=== PATIENT | male | born 1965 | race Caucasian/White ===

== ENCOUNTER 2018-01-11 14:43 | Observation (INO) | payer MEDICAID ==
[~2018-01-11] VITALS: Ht 177.8 cm; Wt 63.5 kg
[2018-01-11] MEDS ORDERED: LORazepam 1MG TABLET PO ONE (15:00)
[2018-01-11] MEDS ORDERED: HALOPERIDOL 5 MG/ML IM ONE (15:00)
[2018-01-11] MEDS ORDERED: LORazepam 1MG TABLET ONE (15:08)
[2018-01-11] MEDS ORDERED: HALOPERIDOL 5 MG/ML ONE (15:08)
[2018-01-11 15:37] LABS: BASOPHILS # (AUTO) 0.03 x10^3/uL (0-0.1); BASOPHILS % (AUTO) 0 % (0-1); EOSINOPHILS # (AUTO) 0.23 x10^3/uL (0-0.4); EOSINOPHILS % (AUTO) 1 % (1-7); LYMPHOCYTES # (AUTO) 2.41 x10^3/uL (1-3.4); LYMPHOCYTES % (AUTO) 14 % (22-44); MD NO; MEAN CORPUSCULAR HEMOGLOBIN 29.4 pg (27.5-34.5); MEAN CORPUSCULAR HGB CONC 32.9 g/dL (33.2-36.2); MEAN CORPUSCULAR VOLUME 89.4 fL (81-97); MEAN PLATELET VOLUME 7.6 fL (7.4-10.4); MONOCYTES # (AUTO) 1.43 x10^3/uL (0.2-0.8); MONOCYTES % (AUTO) 8 % (2-9); NEUTROPHILS # (AUTO) 13.59 x10^3/uL (1.8-6.8); NEUTROPHILS % (AUTO) 77 % (42-75); PLATELET COUNT 350 x10^3/uL (130-400); RED CELL DISTRIBUTION WIDTH 13.5 % (9.4-14.8)
[2018-01-11 15:47] LABS: ALBUMIN 4.4 g/dL (3.4-5.0); ANION GAP 9 mmol/L (5-15); CALCIUM 9.7 mg/dL (8.5-10.1); CHLORIDE 103 mmol/L (98-107)
[2018-01-11 15:48] LABS: SALICYLATE LEVEL < 1.7 mg/dL (2.8-20.0)
[2018-01-11 15:50] LABS: ALANINE AMINOTRANSFERASE 52 U/L (12-78); ALKALINE PHOSPHATASE 121 U/L (45-117); BILIRUBIN,TOTAL 0.6 mg/dL (0.2-1.0); TOTAL PROTEIN 8.5 g/dL (6.4-8.2)
[2018-01-11 15:52] LABS: ACETAMINOPHEN < 2 mcg/mL (10-30)
[2018-01-11 16:08] LABS: AMPHETAMINE SCREEN, URINE Positive (Negative); BARBITURATE SCREEN, URINE Negative (Negative); BENZODIAZEPINE SCREEN, URINE Negative (Negative); CANNABINOID SCREEN, URINE Negative (Negative); COCAINE SCREEN, URINE Negative (Negative); METHADONE SCREEN, URINE Negative (Negative); OPIATE SCREEN, URINE Negative (Negative)
[2018-01-11] MEDS ORDERED: QUET50TA5 PO (17:58)
[2018-01-11] MEDS ORDERED: GABA100C PO (17:58)
[2018-01-12] MEDS ORDERED: GABAPENTIN 300 MG CAPSULE PO PRN (01:00)
[2018-01-12] MEDS ORDERED: ALUMINUM/MAG/SIMETHICONE 30 ML UDC PO PRN (01:00)
[2018-01-12] MEDS ORDERED: DOCUSATE 100 MG CAPSULE PO PRN (01:00)
[2018-01-12] MEDS ORDERED: DIPHENHYDRAMINE 50 MG CAPSULE PO PRN (01:00)
[2018-01-12] MEDS ORDERED: ACETAMINOPHEN 325 MG TABLET PO PRN (01:00)
[2018-01-12] MEDS ORDERED: LORazepam 1MG TABLET ONE ×3 (01:21→13:58)
[2018-01-12] MEDS: LORazepam 1MG TABLET PO PRN ×3 (01:27→13:59)
[2018-01-12] MEDS: PLEASE ENTER ALLERGIES MC SCH ×3 (02:30→18:30)
[2018-01-12] MEDS: MAGNESIUM CHLORIDE 64 MG TABLET.DR PO SCH ×3 (09:34→20:38)
[2018-01-12] MEDS: MULTIVITAMINS/MINERALS TABLET PO SCH (09:34)
[2018-01-12] MEDS ORDERED: THIAMINE 100MG TABLET ONE (11:15)
[2018-01-12 11:28] LABS: MEAN CORPUSCULAR HEMOGLOBIN 29.4 pg (27.5-34.5); MEAN CORPUSCULAR HGB CONC 33.2 g/dL (33.2-36.2); MEAN CORPUSCULAR VOLUME 88.5 fL (81-97); MEAN PLATELET VOLUME 7.5 fL (7.4-10.4); PLATELET COUNT 323 x10^3/uL (130-400); RED BLOOD COUNT 5.47 x10^6/uL (4.38-5.82)
[2018-01-12] MEDS: THIAMINE 100MG TABLET PO SCH (11:29)
[2018-01-12] MEDS: FOLIC ACID 1 MG TABLET PO SCH (11:29)
[2018-01-12 11:42] LABS: BASOPHILS # (AUTO) 0.03 x10^3/uL (0-0.1); BASOPHILS % (AUTO) 0 % (0-1); EOSINOPHILS # (AUTO) 0.53 x10^3/uL (0-0.4); EOSINOPHILS % (AUTO) 4 % (1-7); LYMPHOCYTES # (AUTO) 1.84 x10^3/uL (1-3.4); LYMPHOCYTES % (AUTO) 15 % (22-44); MD SCAN; MONOCYTES # (AUTO) 0.92 x10^3/uL (0.2-0.8); MONOCYTES % (AUTO) 8 % (2-9); NEUTROPHILS # (AUTO) 8.75 x10^3/uL (1.8-6.8); NEUTROPHILS % (AUTO) 73 % (42-75)
[2018-01-12] MEDS: NICOTINE GUM 2 MG BC PRN (13:54)
[2018-01-12 16:49] VITALS: BP 125/81
[2018-01-12 19:50] VITALS: BP 116/77
[2018-01-13] MEDS: PLEASE ENTER ALLERGIES MC SCH ×2 (02:30→10:30)
[2018-01-13 06:00] LABS: BASOPHILS # (AUTO) 0.03 x10^3/uL (0-0.1); BASOPHILS % (AUTO) 0 % (0-1); EOSINOPHILS # (AUTO) 0.46 x10^3/uL (0-0.4); EOSINOPHILS % (AUTO) 5 % (1-7); LYMPHOCYTES # (AUTO) 1.86 x10^3/uL (1-3.4); LYMPHOCYTES % (AUTO) 21 % (22-44); MD NO; MEAN CORPUSCULAR HEMOGLOBIN 30.3 pg (27.5-34.5); MEAN CORPUSCULAR HGB CONC 34.4 g/dL (33.2-36.2); MEAN CORPUSCULAR VOLUME 88.3 fL (81-97); MEAN PLATELET VOLUME 7.4 fL (7.4-10.4); MONOCYTES # (AUTO) 0.82 x10^3/uL (0.2-0.8); MONOCYTES % (AUTO) 9 % (2-9); NEUTROPHILS # (AUTO) 5.74 x10^3/uL (1.8-6.8); NEUTROPHILS % (AUTO) 65 % (42-75); PLATELET COUNT 292 x10^3/uL (130-400); RED BLOOD COUNT 5.47 x10^6/uL (4.38-5.82); RED CELL DISTRIBUTION WIDTH 13.7 % (9.4-14.8)
[2018-01-13 07:52] VITALS: BP 110/80
[2018-01-13] MEDS: FOLIC ACID 1 MG TABLET PO SCH (08:11)
[2018-01-13] MEDS: MULTIVITAMINS/MINERALS TABLET PO SCH (08:11)
[2018-01-13] MEDS: THIAMINE 100MG TABLET PO SCH (08:11)
[2018-01-13] MEDS: MAGNESIUM CHLORIDE 64 MG TABLET.DR PO SCH ×3 (08:11→21:13)
[2018-01-13] MEDS: LORazepam 1MG TABLET PO PRN ×2 (08:17→13:53)
[2018-01-13] MEDS ORDERED: LITH450T PO (13:44)
[2018-01-13] MEDS: NICOTINE GUM 2 MG BC PRN (13:53)
[2018-01-13] MEDS ORDERED: SEROQUEL MC SCH (15:00)
[2018-01-13] MEDS: GABAPENTIN 300 MG CAPSULE PO SCH ×2 (16:09→21:13)
[2018-01-13 20:00] VITALS: BP 139/74
[2018-01-13] MEDS: LITHIUM CARBONATE 300 MG TABLET.ER PO SCH (21:13)
[2018-01-13] MEDS: QUETIAPINE 200 MG TABLET PO SCH (21:14)
[2018-01-14 07:45] VITALS: BP 126/85
[2018-01-14] MEDS: MAGNESIUM CHLORIDE 64 MG TABLET.DR PO SCH (07:56)
[2018-01-14] MEDS: LITHIUM CARBONATE 300 MG TABLET.ER PO SCH ×2 (07:57→21:04)
[2018-01-14] MEDS: THIAMINE 100MG TABLET PO SCH (07:57)
[2018-01-14] MEDS: GABAPENTIN 300 MG CAPSULE PO SCH ×3 (07:57→21:03)
[2018-01-14] MEDS: FOLIC ACID 1 MG TABLET PO SCH (07:57)
[2018-01-14] MEDS: MULTIVITAMINS/MINERALS TABLET PO SCH (07:57)
[2018-01-14] MEDS: QUETIAPINE 200 MG TABLET PO SCH ×2 (07:58→21:04)
[2018-01-14 10:53] LABS: MICROSCOPIC NOT IND
[2018-01-14 10:54] LABS: CULTURE INDICATED? NO
[2018-01-14] MEDS ORDERED: LOPERAMIDE 2 MG CAPSULE PO PRN (15:30)
[2018-01-14 20:00] VITALS: BP 99/67
[2018-01-15 08:00] VITALS: BP 122/80
[2018-01-15] MEDS: QUETIAPINE 200 MG TABLET PO SCH ×2 (08:26→21:30)
[2018-01-15] MEDS: MULTIVITAMINS/MINERALS TABLET PO SCH (08:26)
[2018-01-15] MEDS: FOLIC ACID 1 MG TABLET PO SCH (08:26)
[2018-01-15] MEDS: LITHIUM CARBONATE 300 MG TABLET.ER PO SCH ×2 (08:27→21:31)
[2018-01-15] MEDS: THIAMINE 100MG TABLET PO SCH (08:27)
[2018-01-15] MEDS: GABAPENTIN 300 MG CAPSULE PO SCH ×3 (08:28→21:30)
[2018-01-15] MEDS ORDERED: ALBUTEROL SULFATE 2.5 MG/3 ML NPPB PRN ×2 (17:30→18:30)
[2018-01-15] MEDS ORDERED: ALBUTEROL SULFATE 2.5 MG/3 ML ONE (17:31)
[2018-01-15] MEDS: LORazepam 1MG TABLET PO PRN (17:57)
[2018-01-15 19:59] VITALS: BP 121/67
[2018-01-16 07:35] VITALS: BP 117/80
[2018-01-16] MEDS: LITHIUM CARBONATE 300 MG TABLET.ER PO SCH ×2 (08:05→20:13)
[2018-01-16] MEDS: MULTIVITAMINS/MINERALS TABLET PO SCH (08:06)
[2018-01-16] MEDS: GABAPENTIN 300 MG CAPSULE PO SCH ×3 (08:06→20:12)
[2018-01-16] MEDS: FOLIC ACID 1 MG TABLET PO SCH (08:06)
[2018-01-16] MEDS: THIAMINE 100MG TABLET PO SCH (08:06)
[2018-01-16] MEDS: QUETIAPINE 200 MG TABLET PO SCH ×2 (08:07→20:10)
[2018-01-16] MEDS: LORazepam 1MG TABLET PO PRN ×2 (17:52→21:06)
[2018-01-16 20:08] VITALS: BP 124/79
[2018-01-17] MEDS: MULTIVITAMINS/MINERALS TABLET PO SCH (07:42)
[2018-01-17] MEDS: GABAPENTIN 300 MG CAPSULE PO SCH ×3 (07:42→20:09)
[2018-01-17] MEDS: THIAMINE 100MG TABLET PO SCH (07:42)
[2018-01-17] MEDS: FOLIC ACID 1 MG TABLET PO SCH (07:42)
[2018-01-17] MEDS: QUETIAPINE 200 MG TABLET PO SCH ×2 (07:43→20:11)
[2018-01-17] MEDS: LITHIUM CARBONATE 300 MG TABLET.ER PO SCH ×2 (07:44→20:09)
[2018-01-17 08:02] VITALS: BP 97/69
[2018-01-17 19:02] VITALS: BP 119/75
[2018-01-17] MEDS: LORazepam 1MG TABLET PO PRN (19:09)
[2018-01-18] MEDS: LORazepam 1MG TABLET PO PRN (00:46)
[2018-01-18 07:17] VITALS: BP 111/69
[2018-01-18] MEDS: FOLIC ACID 1 MG TABLET PO SCH (08:18)
[2018-01-18] MEDS: LITHIUM CARBONATE 300 MG TABLET.ER PO SCH ×2 (08:19→20:51)
[2018-01-18] MEDS: MULTIVITAMINS/MINERALS TABLET PO SCH (08:19)
[2018-01-18] MEDS: THIAMINE 100MG TABLET PO SCH (08:20)
[2018-01-18] MEDS: GABAPENTIN 300 MG CAPSULE PO SCH ×3 (08:20→20:51)
[2018-01-18] MEDS: QUETIAPINE 200 MG TABLET PO SCH ×2 (08:23→20:50)
[2018-01-18 19:10] VITALS: BP 120/82
[2018-01-19] MEDS: GABAPENTIN 300 MG CAPSULE PO SCH ×3 (07:48→20:19)
[2018-01-19] MEDS: MULTIVITAMINS/MINERALS TABLET PO SCH (07:48)
[2018-01-19] MEDS: THIAMINE 100MG TABLET PO SCH (07:49)
[2018-01-19] MEDS: LITHIUM CARBONATE 300 MG TABLET.ER PO SCH ×2 (07:49→20:19)
[2018-01-19] MEDS: FOLIC ACID 1 MG TABLET PO SCH (07:49)
[2018-01-19 07:50] VITALS: BP 107/77
[2018-01-19] MEDS: QUETIAPINE 200 MG TABLET PO SCH ×2 (07:50→20:19)
[2018-01-19 19:30] VITALS: BP 116/53
[2018-01-20 07:49] VITALS: BP 107/74
[2018-01-20] MEDS: FOLIC ACID 1 MG TABLET PO SCH (09:11)
[2018-01-20] MEDS: MULTIVITAMINS/MINERALS TABLET PO SCH (09:12)
[2018-01-20] MEDS: LITHIUM CARBONATE 300 MG TABLET.ER PO SCH ×2 (09:12→20:42)
[2018-01-20] MEDS: GABAPENTIN 300 MG CAPSULE PO SCH ×3 (09:13→20:44)
[2018-01-20] MEDS: QUETIAPINE 200 MG TABLET PO SCH ×2 (09:13→20:42)
[2018-01-20] MEDS: THIAMINE 100MG TABLET PO SCH (09:14)
[2018-01-20 15:51] VITALS: BP 125/82
[2018-01-20] MEDS: LORazepam 1MG TABLET PO PRN (16:11)
[2018-01-20 19:57] VITALS: BP 125/87
[2018-01-21] MEDS: LORazepam 1MG TABLET PO PRN ×2 (06:21→15:33)
[2018-01-21 08:07] VITALS: BP 124/92
[2018-01-21] MEDS: MULTIVITAMINS/MINERALS TABLET PO SCH (09:35)
[2018-01-21] MEDS: FOLIC ACID 1 MG TABLET PO SCH (09:35)
[2018-01-21] MEDS: LITHIUM CARBONATE 300 MG TABLET.ER PO SCH ×2 (09:35→20:08)
[2018-01-21] MEDS: THIAMINE 100MG TABLET PO SCH (09:35)
[2018-01-21] MEDS: QUETIAPINE 200 MG TABLET PO SCH ×2 (09:36→20:09)
[2018-01-21] MEDS: GABAPENTIN 300 MG CAPSULE PO SCH ×3 (09:36→20:09)
[2018-01-21 19:25] VITALS: BP 118/76
[2018-01-22 08:00] VITALS: BP 114/79
[2018-01-22] MEDS: QUETIAPINE 200 MG TABLET PO SCH ×2 (09:00→20:41)
[2018-01-22] MEDS: THIAMINE 100MG TABLET PO SCH (09:00)
[2018-01-22] MEDS: FOLIC ACID 1 MG TABLET PO SCH (09:00)
[2018-01-22] MEDS: LITHIUM CARBONATE 300 MG TABLET.ER PO SCH ×2 (09:00→20:41)
[2018-01-22] MEDS: GABAPENTIN 300 MG CAPSULE PO SCH ×3 (09:00→20:41)
[2018-01-22] MEDS: MULTIVITAMINS/MINERALS TABLET PO SCH (09:00)
[2018-01-22] MEDS: LORazepam 1MG TABLET PO PRN (16:22)
[2018-01-22 20:35] VITALS: BP 117/74
[2018-01-23] MEDS: MULTIVITAMINS/MINERALS TABLET PO SCH (08:02)
[2018-01-23] MEDS: FOLIC ACID 1 MG TABLET PO SCH (08:03)
[2018-01-23] MEDS: QUETIAPINE 200 MG TABLET PO SCH ×2 (08:03→20:55)
[2018-01-23] MEDS: GABAPENTIN 300 MG CAPSULE PO SCH ×3 (08:03→20:53)
[2018-01-23] MEDS: THIAMINE 100MG TABLET PO SCH (08:03)
[2018-01-23] MEDS: LITHIUM CARBONATE 300 MG TABLET.ER PO SCH ×2 (08:04→20:52)
[2018-01-23 08:23] VITALS: BP 120/87
[2018-01-23 20:14] VITALS: BP 128/83
[2018-01-24 08:15] VITALS: BP 114/87
[2018-01-24] MEDS: QUETIAPINE 200 MG TABLET PO SCH (08:42)
[2018-01-24] MEDS: LITHIUM CARBONATE 300 MG TABLET.ER PO SCH (08:43)
[2018-01-24] MEDS: GABAPENTIN 300 MG CAPSULE PO SCH (08:43)
[2018-01-24] MEDS: THIAMINE 100MG TABLET PO SCH (08:44)
[2018-01-24] MEDS: MULTIVITAMINS/MINERALS TABLET PO SCH (08:44)
[2018-01-24] MEDS: FOLIC ACID 1 MG TABLET PO SCH (08:44)
== END 2018-01-24 13:03 ==
LOC: ED 17:13 → EDIP 18:48 → 2N 01-12 16:14
PROVIDERS: ADMIT Internal Medicine; ATTEND Internal Medicine
DX: R45.851 Suicidal ideations (principal); R45.850 Homicidal ideations; D72.829 Elevated white blood cell count, unspecified; F10.239 Alcohol dependence with withdrawal, unspecified; I10 Essential (primary) hypertension; F15.10 Other stimulant abuse, uncomplicated; F17.210 Nicotine dependence, cigarettes, uncomplicated; F20.0 Paranoid schizophrenia; F31.9 Bipolar disorder, unspecified; J45.909 Unspecified asthma, uncomplicated; Z59.0 Homelessness; Z82.5 Family history of asthma and other chronic lower respiratory diseases
CPT/HCPCS: 36415; 71045; 80053; 80178; 80307; 80329; 81003; 85025; 94640; 96372; 99284; G0378; J1630; J7613; G0480

== ENCOUNTER 2018-04-05 15:25 | Inpatient (IN) | payer MEDICAID ==
[~2018-04-05] VITALS: Ht 177.8 cm; Wt 79.8 kg
[~2018-04-05 15:25] MED LIST: GABA100C PO; LITH450T PO; QUET50TA5 PO
[2018-04-05] MEDS ORDERED: LORazepam 2 MG/ML, 1ML IVPush ONE (16:00)
[2018-04-05] MEDS ORDERED: SODIUM CHLORIDE FLUSH 10ML SYR IVF ONE ×2 (16:00→17:30)
[2018-04-05 16:11] LABS: BASOPHILS # (AUTO) 0.03 x10^3/uL (0-0.1); BASOPHILS % (AUTO) 0 % (0-1); EOSINOPHILS # (AUTO) 0.32 x10^3/uL (0-0.4); EOSINOPHILS % (AUTO) 4 % (1-7); LYMPHOCYTES # (AUTO) 1.58 x10^3/uL (1-3.4); LYMPHOCYTES % (AUTO) 22 % (22-44); MD NO; MEAN CORPUSCULAR HEMOGLOBIN 28.7 pg (27.5-34.5); MEAN CORPUSCULAR HGB CONC 33.5 g/dL (33.2-36.2); MEAN CORPUSCULAR VOLUME 85.5 fL (81-97); MEAN PLATELET VOLUME 7.8 fL (7.4-10.4); MONOCYTES # (AUTO) 0.47 x10^3/uL (0.2-0.8); MONOCYTES % (AUTO) 7 % (2-9); NEUTROPHILS # (AUTO) 4.89 x10^3/uL (1.8-6.8); NEUTROPHILS % (AUTO) 67 % (42-75); PLATELET COUNT 301 x10^3/uL (130-400); RED BLOOD COUNT 5.76 x10^6/uL (4.38-5.82); RED CELL DISTRIBUTION WIDTH 15.7 % (9.4-14.8)
[2018-04-05 16:20] LABS: ALBUMIN 3.8 g/dL (3.4-5.0); ANION GAP 6 mmol/L (5-15); CHLORIDE 105 mmol/L (98-107); SALICYLATE LEVEL 3.1 mg/dL (2.8-20.0)
[2018-04-05 16:23] LABS: ALANINE AMINOTRANSFERASE 29 U/L (12-78); ALKALINE PHOSPHATASE 108 U/L (45-117); BILIRUBIN,TOTAL 0.7 mg/dL (0.2-1.0); CREATININE 0.83 mg/dL (0.7-1.3); TOTAL PROTEIN 7.5 g/dL (6.4-8.2)
[2018-04-05] MEDS ORDERED: LORazepam 2 MG/ML, 1ML ONE (16:23)
[2018-04-05 16:25] LABS: ACETAMINOPHEN < 2 mcg/mL (10-30)
--- NOTE | 2018-04-05 16:37 | NUR ---
Placed PIV per EDMD orders and provided medication per EMAR.
[2018-04-05 16:38] LABS: AMPHETAMINE SCREEN, URINE Negative (Negative); BARBITURATE SCREEN, URINE Negative (Negative); BENZODIAZEPINE SCREEN, URINE Positive (Negative); CANNABINOID SCREEN, URINE Positive (Negative); COCAINE SCREEN, URINE Negative (Negative); METHADONE SCREEN, URINE Negative (Negative); OPIATE SCREEN, URINE Negative (Negative)
--- NOTE | 2018-04-05 17:17 | NUR ---
Pt resting on [employer] watching TV. NADN. No needs expressed at this time. Sitter near doorway in direct line of sight for observation. NADN.
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
--- NOTE | 2018-04-05 17:32 | NUR ---
Pt's Gabapentin, mirtazapine, and ventolin inhaler at Pharmacy for safe keeping. Yellow belongings slip in pt's chart.
--- NOTE | 2018-04-05 17:32 | NUR ---
Pt has personal glasses at bedside.
[2018-04-05] MEDS ORDERED: hydrALAzine 20 MG/ML, 1ML IVPush PRN (18:00)
[2018-04-05] MEDS: GABAPENTIN 300 MG CAPSULE PO SCH ×2 (18:00→21:49)
[2018-04-05] MEDS ORDERED: NICOTINE 21 MG/24 HR PATCH.TD24 TD SCH (18:00)
[2018-04-05] MEDS ORDERED: ONDANSETRON 2MG/ML, 2ML IVPush PRN (18:00)
[2018-04-05] MEDS ORDERED: POTASSIUM CHLORIDE 20 MEQ, MAGNESIUM SULFATE 1 GM, FOLIC ACID 1 MG, THIAMINE 200 MG, MV... IV SCH (18:00)
[2018-04-05] MEDS ORDERED: MIRT15TA4 PO (18:30)
[2018-04-05] MEDS ORDERED: DIAZ5TAB4 PO (18:30)
[2018-04-05] MEDS ORDERED: ALBU18HF INH (18:30)
[2018-04-05] MEDS ORDERED: OLAN20TA7 PO (18:30)
[2018-04-05] MEDS ORDERED: POTASSIUM CHLORIDE 20 MEQ, MAGNESIUM SULFATE 1 GM, FOLIC ACID 1 MG, MVI ADULT 10 ML in ... IV SCH (20:14)
[2018-04-05] MEDS ORDERED: SEROQUEL MC SCH (20:30)
[2018-04-05] MEDS ORDERED: QUETIAPINE FUMARATE 500 MG PO SCH (21:00)
[2018-04-05] MEDS ORDERED: MIRTAZAPINE 15 MG TABLET PO SCH (21:00)
[2018-04-05] MEDS: PANTOPROZOLE 40MG TABLET PO SCH (21:49)
[2018-04-05] MEDS: QUETIAPINE 200 MG TABLET PO SCH (22:00)
[2018-04-05] MEDS ORDERED: LORazepam 2 MG/ML, 1ML IVPush PRN (23:00)
[2018-04-05] MEDS: CHLORDIAZEPOXIDE 25 MG CAPSULE PO PRN (23:23)
[2018-04-05 23:43] VITALS: BP 93/60
[2018-04-06 02:00] VITALS: BP 95/63
[2018-04-06] MEDS: SODIUM CHLORIDE 0.9% 1,000 ML IV SCH ×2 (06:28→16:58)
[2018-04-06] MEDS ORDERED: LORazepam 2 MG/ML, 1ML IVPush PRN (07:00)
[2018-04-06 07:16] LABS: ALANINE AMINOTRANSFERASE 25 U/L (12-78); ALBUMIN 3.3 g/dL (3.4-5.0); ANION GAP 6 mmol/L (5-15); CALCIUM 8.4 mg/dL (8.5-10.1); CHLORIDE 106 mmol/L (98-107)
[2018-04-06 07:18] LABS: ALKALINE PHOSPHATASE 84 U/L (45-117); BILIRUBIN,TOTAL 0.4 mg/dL (0.2-1.0); TOTAL PROTEIN 6.7 g/dL (6.4-8.2)
[2018-04-06] MEDS ORDERED: THIAMINE 100MG TABLET PO SCH (09:00)
[2018-04-06] MEDS: PANTOPROZOLE 40MG TABLET PO SCH ×2 (09:06→16:58)
[2018-04-06] MEDS: GABAPENTIN 300 MG CAPSULE PO SCH ×2 (09:06→16:58)
[2018-04-06] MEDS: QUETIAPINE 200 MG TABLET PO SCH (09:06)
[2018-04-06] MEDS: CHLORDIAZEPOXIDE 25 MG CAPSULE PO PRN (09:07)
[2018-04-06 10:50] VITALS: BP 129/60
[2018-04-06 14:12] VITALS: BP 129/84
[2018-04-06] MEDS ORDERED: PROPRANOLOL 10 MG TABLET PO SCH (15:00)
[2018-04-06] MEDS ORDERED: PANT40TA5 PO (16:23)
[2018-04-06] MEDS ORDERED: FOLI-17 PO (16:23)
[2018-04-06] MEDS ORDERED: CHLO25CA9 PO (16:23)
[2018-04-06] MEDS ORDERED: NICO-487 TD (16:23)
[2018-04-06] MEDS ORDERED: THIA100T67 PO (16:23)
[2018-04-06] MEDS ORDERED: QUET200T PO (16:23)
[2018-04-06] MEDS ORDERED: PROP10TA16 PO (16:23)
[2018-04-07 02:00] VITALS: BP 103/65
== END 2018-04-06 17:31 | DRG 881 ==
LOC: ED 17:07 → EDIP 17:08 → 3NE 20:00
PROVIDERS: ADMIT Hospitalist; ATTEND Internal Medicine
DX: F32.9 Major depressive disorder, single episode, unspecified (principal); F10.231 Alcohol dependence with withdrawal delirium; F25.9 Schizoaffective disorder, unspecified; I10 Essential (primary) hypertension; J45.909 Unspecified asthma, uncomplicated; Z87.891 Personal history of nicotine dependence; Z91.14 Patient's other noncompliance with medication regimen
CPT/HCPCS: 36415; 80053; 80307; 80329; 83735; 84100; 85025; 96374; 99285; G0378; J3475; J3480; J7070; G0480; J2060; J7030

== ENCOUNTER 2018-04-06 18:12 | Inpatient (IN) | payer MEDICAID ==
[~2018-04-06] VITALS: Ht 180.3 cm; Wt 97.2 kg
[~2018-04-06 18:12] MED LIST changes: +ALBU18HF INH; +CHLO25CA9 PO; +DIAZ5TAB4 PO; +FOLI-17 PO; +MIRT15TA4 PO; +NICO-487 TD; +OLAN20TA7 PO; +PANT40TA5 PO; +PROP10TA16 PO; +QUET200T PO; +THIA100T67 PO
[2018-04-06] MEDS ORDERED: POLYETHYLENE GLYCOL 17 GM PACKET PO PRN (18:30)
[2018-04-06] MEDS ORDERED: BISACODYL 10 MG SUPP PR PRN (18:30)
[2018-04-06] MEDS ORDERED: DOCUSATE 100 MG CAPSULE PO PRN (18:30)
[2018-04-06 18:47] VITALS: BP 120/77
[2018-04-06 18:50] VITALS: BP 120/77
[2018-04-06] MEDS ORDERED: PLEASE ENTER HEIGHT AND WEIGHT MC SCH (19:00)
[2018-04-06 19:55] VITALS: BP 80/53
[2018-04-06 20:30] VITALS: BP 117/77
[2018-04-06] MEDS: ACAMPROSATE 333 MG TABLET.DR PO SCH (20:47)
[2018-04-06] MEDS: MIRTAZAPINE 15 MG TABLET PO SCH (20:47)
[2018-04-06] MEDS: NICOTINE 21 MG/24 HR PATCH.TD24 TD SCH (20:47)
[2018-04-06] MEDS: QUETIAPINE 200 MG TABLET PO SCH (20:47)
[2018-04-06] MEDS: GABAPENTIN 300 MG CAPSULE PO SCH (20:48)
[2018-04-07 06:35] LABS: CHOL/HDL RATIO 2.9; FOLATE LEVEL 11.5 ng/mL (3.1-17.5); FREE T4 (FREE THYROXINE) 0.96 ng/dL (0.76-1.46); LDL/HDL RATIO 1.3 (0.5-3.0); THYROID STIMULATING HORMONE 0.837 mIU/L (0.358-3.740)
[2018-04-07 07:15] VITALS: BP 127/83
[2018-04-07] MEDS: LORazepam 1MG TABLET PO PRN ×2 (07:41→15:15)
[2018-04-07] MEDS: THIAMINE 100MG TABLET PO SCH (08:46)
[2018-04-07] MEDS: GABAPENTIN 300 MG CAPSULE PO SCH ×3 (08:46→20:13)
[2018-04-07] MEDS: QUETIAPINE 200 MG TABLET PO SCH ×2 (08:46→20:13)
[2018-04-07] MEDS: ACAMPROSATE 333 MG TABLET.DR PO SCH ×3 (08:46→20:13)
[2018-04-07] MEDS: FOLIC ACID 1 MG TABLET PO SCH (08:46)
[2018-04-07 13:37] LABS: MICROSCOPIC NOT IND
[2018-04-07 13:39] LABS: CULTURE INDICATED? NO
[2018-04-07 15:14] VITALS: BP 120/81
[2018-04-07] MEDS: ACETAMINOPHEN 325 MG TABLET PO PRN (17:58)
[2018-04-07] MEDS: NICOTINE 21 MG/24 HR PATCH.TD24 TD SCH (17:58)
[2018-04-07 20:00] VITALS: BP 115/80
[2018-04-07] MEDS: QUETIAPINE 100MG TABLET PO SCH (20:13)
[2018-04-07] MEDS: MIRTAZAPINE 15 MG TABLET PO SCH (20:13)
[2018-04-08] MEDS: LORazepam 1MG TABLET PO PRN ×2 (05:44→20:12)
[2018-04-08 05:50] VITALS: BP 128/90
[2018-04-08 07:19] VITALS: BP 126/83
[2018-04-08] MEDS: FOLIC ACID 1 MG TABLET PO SCH (08:28)
[2018-04-08] MEDS: THIAMINE 100MG TABLET PO SCH (08:28)
[2018-04-08] MEDS: GABAPENTIN 300 MG CAPSULE PO SCH ×3 (08:29→20:12)
[2018-04-08] MEDS: QUETIAPINE 200 MG TABLET PO SCH ×2 (08:29→20:12)
[2018-04-08] MEDS: ACAMPROSATE 333 MG TABLET.DR PO SCH ×3 (08:29→20:11)
[2018-04-08] MEDS: NICOTINE 21 MG/24 HR PATCH.TD24 TD SCH (18:33)
[2018-04-08 19:52] VITALS: BP 117/65
[2018-04-08] MEDS: QUETIAPINE 100MG TABLET PO SCH (20:11)
[2018-04-08] MEDS: MIRTAZAPINE 15 MG TABLET PO SCH (20:12)
[2018-04-09 07:22] VITALS: BP 114/84
[2018-04-09] MEDS: LORazepam 1MG TABLET PO PRN ×2 (07:32→20:41)
[2018-04-09] MEDS: GABAPENTIN 300 MG CAPSULE PO SCH ×3 (08:57→20:42)
[2018-04-09] MEDS: ACAMPROSATE 333 MG TABLET.DR PO SCH ×3 (08:57→20:41)
[2018-04-09] MEDS: THIAMINE 100MG TABLET PO SCH (08:57)
[2018-04-09] MEDS: FOLIC ACID 1 MG TABLET PO SCH (08:57)
[2018-04-09] MEDS: QUETIAPINE 200 MG TABLET PO SCH ×2 (08:57→20:41)
[2018-04-09] MEDS: NICOTINE 21 MG/24 HR PATCH.TD24 TD SCH (18:00)
[2018-04-09 19:51] VITALS: BP 121/80
[2018-04-09] MEDS: MIRTAZAPINE 15 MG TABLET PO SCH (20:41)
[2018-04-09] MEDS: QUETIAPINE 100MG TABLET PO SCH (20:41)
[2018-04-10 07:55] VITALS: BP 111/77
[2018-04-10] MEDS: FOLIC ACID 1 MG TABLET PO SCH (08:00)
[2018-04-10] MEDS: GABAPENTIN 300 MG CAPSULE PO SCH ×3 (08:00→21:02)
[2018-04-10] MEDS: LORazepam 1MG TABLET PO PRN ×2 (08:00→15:52)
[2018-04-10] MEDS: ACAMPROSATE 333 MG TABLET.DR PO SCH ×3 (08:00→21:03)
[2018-04-10] MEDS: THIAMINE 100MG TABLET PO SCH (08:00)
[2018-04-10] MEDS: QUETIAPINE 200 MG TABLET PO SCH ×2 (08:00→21:02)
[2018-04-10] MEDS ORDERED: QUETIAPINE 25MG TABLET PO SCH (12:30)
[2018-04-10 19:33] VITALS: BP 127/85
[2018-04-10] MEDS: QUETIAPINE 100MG TABLET PO SCH (21:03)
[2018-04-10] MEDS: MIRTAZAPINE 15 MG TABLET PO SCH (21:03)
[2018-04-10] MEDS: NICOTINE 21 MG/24 HR PATCH.TD24 TD SCH (21:12)
[2018-04-11 07:20] VITALS: BP 129/82
[2018-04-11] MEDS: THIAMINE 100MG TABLET PO SCH (08:48)
[2018-04-11] MEDS: GABAPENTIN 300 MG CAPSULE PO SCH ×3 (08:48→20:36)
[2018-04-11] MEDS: ACAMPROSATE 333 MG TABLET.DR PO SCH ×3 (08:48→20:35)
[2018-04-11] MEDS: LORazepam 1MG TABLET PO PRN ×2 (08:48→17:43)
[2018-04-11] MEDS: FOLIC ACID 1 MG TABLET PO SCH (08:49)
[2018-04-11] MEDS: QUETIAPINE 200 MG TABLET PO SCH ×2 (08:49→20:37)
[2018-04-11] MEDS: NICOTINE 21 MG/24 HR PATCH.TD24 TD SCH (17:35)
[2018-04-11 19:33] VITALS: BP 103/72
[2018-04-11] MEDS: MIRTAZAPINE 15 MG TABLET PO SCH (20:42)
[2018-04-12 07:40] VITALS: BP 123/85
[2018-04-12] MEDS: ACAMPROSATE 333 MG TABLET.DR PO SCH ×3 (10:41→20:46)
[2018-04-12] MEDS: FOLIC ACID 1 MG TABLET PO SCH (10:41)
[2018-04-12] MEDS: GABAPENTIN 300 MG CAPSULE PO SCH ×3 (10:42→20:47)
[2018-04-12] MEDS: THIAMINE 100MG TABLET PO SCH (10:43)
[2018-04-12] MEDS: QUETIAPINE 200 MG TABLET PO SCH ×2 (10:43→20:48)
[2018-04-12] MEDS: NICOTINE 21 MG/24 HR PATCH.TD24 TD SCH (18:37)
[2018-04-12 19:57] VITALS: BP 128/77
[2018-04-12] MEDS: MIRTAZAPINE 15 MG TABLET PO SCH (20:47)
[2018-04-12] MEDS: RISPERIDONE 1 MG TABLET PO SCH (20:47)
[2018-04-12] MEDS: ACETAMINOPHEN 325 MG TABLET PO PRN (20:48)
[2018-04-13 07:30] VITALS: BP 112/74
[2018-04-13] MEDS: ACAMPROSATE 333 MG TABLET.DR PO SCH ×3 (09:04→20:31)
[2018-04-13] MEDS: FOLIC ACID 1 MG TABLET PO SCH (09:04)
[2018-04-13] MEDS: GABAPENTIN 300 MG CAPSULE PO SCH ×3 (09:04→20:31)
[2018-04-13] MEDS: QUETIAPINE 200 MG TABLET PO SCH ×2 (09:05→20:32)
[2018-04-13] MEDS: THIAMINE 100MG TABLET PO SCH (09:05)
[2018-04-13] MEDS: ALBUTEROL SULFATE 2.5 MG/3 ML NPPB SCH (09:40)
[2018-04-13] MEDS: ACETAMINOPHEN 325 MG TABLET PO PRN (17:02)
[2018-04-13] MEDS: NICOTINE 21 MG/24 HR PATCH.TD24 TD SCH (18:40)
[2018-04-13] MEDS ORDERED: ALBUTEROL SULFATE 2.5 MG/3 ML NPPB PRN (19:30)
[2018-04-13 20:00] VITALS: BP 120/68
[2018-04-13] MEDS: MIRTAZAPINE 15 MG TABLET PO SCH (20:31)
[2018-04-13] MEDS: RISPERIDONE 1 MG TABLET PO SCH (20:31)
[2018-04-14] MEDS: ALBUTEROL SULFATE 2.5 MG/3 ML NPPB SCH ×4 (06:44→19:14)
[2018-04-14 07:13] VITALS: BP 105/66
[2018-04-14] MEDS: QUETIAPINE 200 MG TABLET PO SCH ×2 (08:41→20:17)
[2018-04-14] MEDS: FOLIC ACID 1 MG TABLET PO SCH (08:41)
[2018-04-14] MEDS: GABAPENTIN 300 MG CAPSULE PO SCH ×3 (08:41→20:17)
[2018-04-14] MEDS: ACAMPROSATE 333 MG TABLET.DR PO SCH ×3 (08:41→20:17)
[2018-04-14] MEDS: THIAMINE 100MG TABLET PO SCH (08:41)
[2018-04-14] MEDS: NICOTINE 21 MG/24 HR PATCH.TD24 TD SCH (17:34)
[2018-04-14 19:49] VITALS: BP 113/78
[2018-04-14] MEDS: MIRTAZAPINE 15 MG TABLET PO SCH (20:17)
[2018-04-14] MEDS: RISPERIDONE 1 MG TABLET PO SCH (20:17)
[2018-04-14] MEDS: TRIHEXYPHENIDYL 2MG TABLET PO SCH (20:18)
[2018-04-15] MEDS: ALBUTEROL SULFATE 2.5 MG/3 ML NPPB SCH ×4 (06:10→20:00)
[2018-04-15 07:25] VITALS: BP 105/64
[2018-04-15] MEDS: TRIHEXYPHENIDYL 2MG TABLET PO SCH ×2 (08:09→20:31)
[2018-04-15] MEDS: THIAMINE 100MG TABLET PO SCH (08:09)
[2018-04-15] MEDS: QUETIAPINE 200 MG TABLET PO SCH ×2 (08:10→20:31)
[2018-04-15] MEDS: ACAMPROSATE 333 MG TABLET.DR PO SCH ×3 (08:10→20:31)
[2018-04-15] MEDS: GABAPENTIN 300 MG CAPSULE PO SCH ×3 (08:10→20:31)
[2018-04-15] MEDS: FOLIC ACID 1 MG TABLET PO SCH (08:10)
[2018-04-15] MEDS: LORazepam 1MG TABLET PO PRN (13:13)
[2018-04-15] MEDS: NICOTINE 21 MG/24 HR PATCH.TD24 TD SCH (17:32)
[2018-04-15 19:34] VITALS: BP 126/85
[2018-04-15] MEDS: RISPERIDONE 1 MG TABLET PO SCH (20:31)
[2018-04-15] MEDS: MIRTAZAPINE 15 MG TABLET PO SCH (20:31)
[2018-04-16 07:47] VITALS: BP 116/80
[2018-04-16] MEDS: ALBUTEROL SULFATE 2.5 MG/3 ML NPPB SCH ×4 (07:48→18:55)
[2018-04-16] MEDS: GABAPENTIN 300 MG CAPSULE PO SCH ×3 (09:10→17:32)
[2018-04-16] MEDS: FOLIC ACID 1 MG TABLET PO SCH (09:10)
[2018-04-16] MEDS: LORazepam 1MG TABLET PO PRN (09:10)
[2018-04-16] MEDS: QUETIAPINE 200 MG TABLET PO SCH ×2 (09:11→20:08)
[2018-04-16] MEDS: THIAMINE 100MG TABLET PO SCH (09:11)
[2018-04-16] MEDS: ACAMPROSATE 333 MG TABLET.DR PO SCH ×3 (09:11→20:08)
[2018-04-16] MEDS: TRIHEXYPHENIDYL 2MG TABLET PO SCH ×2 (09:11→20:08)
[2018-04-16] MEDS ORDERED: GABAPENTIN 300 MG CAPSULE PO SCH (16:00)
[2018-04-16] MEDS: ONDANSETRON ODT 4 MG PO PRN (16:53)
[2018-04-16] MEDS: NICOTINE 21 MG/24 HR PATCH.TD24 TD SCH (17:33)
[2018-04-16 19:57] VITALS: BP 121/76
[2018-04-16] MEDS: MIRTAZAPINE 15 MG TABLET PO SCH (20:08)
[2018-04-16] MEDS: RISPERIDONE 1 MG TABLET PO SCH (20:08)
[2018-04-17] MEDS: ALBUTEROL SULFATE 2.5 MG/3 ML NPPB SCH ×4 (07:05→14:05)
[2018-04-17 07:41] VITALS: BP 103/70
[2018-04-17] MEDS: ACAMPROSATE 333 MG TABLET.DR PO SCH ×3 (07:47→20:13)
[2018-04-17] MEDS: GABAPENTIN 300 MG CAPSULE PO SCH ×3 (07:47→16:01)
[2018-04-17] MEDS: QUETIAPINE 200 MG TABLET PO SCH ×2 (07:47→20:12)
[2018-04-17] MEDS: LORazepam 1MG TABLET PO PRN ×2 (07:47→20:13)
[2018-04-17] MEDS: THIAMINE 100MG TABLET PO SCH (07:47)
[2018-04-17] MEDS: FOLIC ACID 1 MG TABLET PO SCH (07:47)
[2018-04-17] MEDS: TRIHEXYPHENIDYL 2MG TABLET PO SCH ×2 (07:48→20:13)
[2018-04-17] MEDS: NICOTINE 21 MG/24 HR PATCH.TD24 TD SCH (17:42)
[2018-04-17 19:10] VITALS: BP 120/79
[2018-04-17] MEDS: RISPERIDONE 1 MG TABLET PO SCH (20:12)
[2018-04-17] MEDS: MIRTAZAPINE 15 MG TABLET PO SCH (20:12)
[2018-04-18] MEDS: ALBUTEROL SULFATE 2.5 MG/3 ML NPPB SCH ×5 (07:30→19:40)
[2018-04-18 08:17] VITALS: BP 126/89
[2018-04-18] MEDS: FOLIC ACID 1 MG TABLET PO SCH (09:21)
[2018-04-18] MEDS: ACAMPROSATE 333 MG TABLET.DR PO SCH ×3 (09:21→21:25)
[2018-04-18] MEDS: TRIHEXYPHENIDYL 2MG TABLET PO SCH ×2 (09:21→21:00)
[2018-04-18] MEDS: QUETIAPINE 200 MG TABLET PO SCH ×2 (09:21→21:27)
[2018-04-18] MEDS: THIAMINE 100MG TABLET PO SCH (09:21)
[2018-04-18] MEDS: GABAPENTIN 300 MG CAPSULE PO SCH ×3 (09:23→17:39)
[2018-04-18] MEDS: ONDANSETRON ODT 4 MG PO PRN (10:41)
[2018-04-18] MEDS: NICOTINE 21 MG/24 HR PATCH.TD24 TD SCH (17:40)
[2018-04-18 19:33] VITALS: BP 119/79
[2018-04-18] MEDS: RISPERIDONE 1 MG TABLET PO SCH (21:26)
[2018-04-18] MEDS: MIRTAZAPINE 15 MG TABLET PO SCH (21:27)
[2018-04-19] MEDS: ALBUTEROL SULFATE 2.5 MG/3 ML NPPB SCH ×4 (07:00→20:20)
[2018-04-19 07:22] VITALS: BP 107/70
[2018-04-19] MEDS: TRIHEXYPHENIDYL 2MG TABLET PO SCH ×2 (08:50→21:00)
[2018-04-19] MEDS: ACAMPROSATE 333 MG TABLET.DR PO SCH ×3 (08:51→20:28)
[2018-04-19] MEDS: THIAMINE 100MG TABLET PO SCH (08:51)
[2018-04-19] MEDS: QUETIAPINE 200 MG TABLET PO SCH ×2 (08:51→20:29)
[2018-04-19] MEDS: FOLIC ACID 1 MG TABLET PO SCH (08:52)
[2018-04-19] MEDS: GABAPENTIN 300 MG CAPSULE PO SCH ×3 (08:52→17:20)
[2018-04-19] MEDS: LORazepam 1MG TABLET PO PRN (11:35)
[2018-04-19] MEDS: NICOTINE 21 MG/24 HR PATCH.TD24 TD SCH (17:35)
[2018-04-19] MEDS: RISPERIDONE 1 MG TABLET PO SCH (20:28)
[2018-04-19] MEDS: MIRTAZAPINE 15 MG TABLET PO SCH (20:28)
[2018-04-19] MEDS: ACETAMINOPHEN 325 MG TABLET PO PRN (20:30)
[2018-04-19 21:11] VITALS: BP 125/77
[2018-04-20] MEDS: ALBUTEROL SULFATE 2.5 MG/3 ML NPPB SCH ×4 (07:00→20:00)
[2018-04-20 07:10] VITALS: BP 96/54
[2018-04-20] MEDS: TRIHEXYPHENIDYL 2MG TABLET PO SCH ×2 (09:00→20:16)
[2018-04-20] MEDS: GABAPENTIN 300 MG CAPSULE PO SCH ×3 (09:00→17:11)
[2018-04-20] MEDS: ACAMPROSATE 333 MG TABLET.DR PO SCH ×3 (09:00→20:16)
[2018-04-20] MEDS: FOLIC ACID 1 MG TABLET PO SCH (09:01)
[2018-04-20] MEDS: THIAMINE 100MG TABLET PO SCH (09:02)
[2018-04-20] MEDS: QUETIAPINE 200 MG TABLET PO SCH ×2 (09:02→20:17)
[2018-04-20] MEDS: NICOTINE 21 MG/24 HR PATCH.TD24 TD SCH (18:28)
[2018-04-20] MEDS: RISPERIDONE 1 MG TABLET PO SCH (20:16)
[2018-04-20] MEDS: MIRTAZAPINE 15 MG TABLET PO SCH (20:16)
[2018-04-20] MEDS: ACETAMINOPHEN 325 MG TABLET PO PRN (20:17)
[2018-04-20 20:18] VITALS: BP 118/78
[2018-04-20] MEDS: LORazepam 1MG TABLET PO PRN (20:20)
[2018-04-21] MEDS: ALBUTEROL SULFATE 2.5 MG/3 ML NPPB SCH ×4 (07:00→20:00)
[2018-04-21 07:35] VITALS: BP 111/72
[2018-04-21] MEDS: THIAMINE 100MG TABLET PO SCH (08:23)
[2018-04-21] MEDS: GABAPENTIN 300 MG CAPSULE PO SCH ×3 (08:23→17:19)
[2018-04-21] MEDS: FOLIC ACID 1 MG TABLET PO SCH (08:23)
[2018-04-21] MEDS: ACAMPROSATE 333 MG TABLET.DR PO SCH ×3 (08:23→20:35)
[2018-04-21] MEDS: TRIHEXYPHENIDYL 2MG TABLET PO SCH ×2 (08:23→20:34)
[2018-04-21] MEDS: QUETIAPINE 200 MG TABLET PO SCH ×2 (08:23→20:34)
[2018-04-21] MEDS ORDERED: ACAM333T7 PO (15:42)
[2018-04-21] MEDS ORDERED: GABA300C10 PO (15:42)
[2018-04-21] MEDS ORDERED: MIRT15TA4 PO (15:42)
[2018-04-21] MEDS ORDERED: QUET200T PO ×2 (15:42)
[2018-04-21] MEDS ORDERED: RISP1TAB45 PO (15:42)
[2018-04-21] MEDS ORDERED: NICO-487 TD (15:42)
[2018-04-21] MEDS ORDERED: TRIH2TAB3 PO (15:42)
[2018-04-21] MEDS: LORazepam 1MG TABLET PO PRN ×2 (15:44→22:20)
[2018-04-21] MEDS: NICOTINE 21 MG/24 HR PATCH.TD24 TD SCH (18:30)
[2018-04-21 19:35] VITALS: BP 110/80
[2018-04-21] MEDS: RISPERIDONE 1 MG TABLET PO SCH (20:34)
[2018-04-21] MEDS: MIRTAZAPINE 15 MG TABLET PO SCH (20:35)
[2018-04-22] MEDS: ALBUTEROL SULFATE 2.5 MG/3 ML NPPB SCH ×2 (06:33→10:47)
[2018-04-22 07:07] VITALS: BP 119/83
[2018-04-22] MEDS: LORazepam 1MG TABLET PO PRN (07:14)
[2018-04-22] MEDS: FOLIC ACID 1 MG TABLET PO SCH (08:21)
[2018-04-22] MEDS: TRIHEXYPHENIDYL 2MG TABLET PO SCH (08:21)
[2018-04-22] MEDS: THIAMINE 100MG TABLET PO SCH (08:21)
[2018-04-22] MEDS: ACAMPROSATE 333 MG TABLET.DR PO SCH (08:22)
[2018-04-22] MEDS: GABAPENTIN 300 MG CAPSULE PO SCH (08:22)
[2018-04-22] MEDS: QUETIAPINE 200 MG TABLET PO SCH (08:22)
[2018-04-22] MEDS: NICOTINE 21 MG/24 HR PATCH.TD24 TD SCH (08:23)
== END 2018-04-22 10:30 | DRG 885 ==
LOC: 3E 18:12
PROVIDERS: ADMIT Psychiatry & Neurology Psychosomatic Medicine; ATTEND Psychiatry & Neurology Psychosomatic Medicine
DX: F25.0 Schizoaffective disorder, bipolar type (principal); F10.239 Alcohol dependence with withdrawal, unspecified; F10.24 Alcohol dependence with alcohol-induced mood disorder; R45.851 Suicidal ideations; J45.909 Unspecified asthma, uncomplicated; I10 Essential (primary) hypertension; F15.21 Other stimulant dependence, in remission; F32.9 Major depressive disorder, single episode, unspecified; G89.29 Other chronic pain; F17.200 Nicotine dependence, unspecified, uncomplicated; Z82.5 Family history of asthma and other chronic lower respiratory diseases; Z82.49 Family history of ischemic heart disease and other diseases of the circulatory system; Z88.0 Allergy status to penicillin
CPT/HCPCS: 36415; J7613; 80061; 81003; 82140; 82607; 82746; 84439; 84443; 86592; 93005; 94640; Q0162; 92523-GN

== ENCOUNTER 2018-04-24 09:58 | Emergency (ER) | payer MEDICAID ==
[~2018-04-24] VITALS: Ht 177.8 cm; Wt 83.0 kg
[~2018-04-24 09:58] MED LIST changes: +ACAM333T7 PO; +GABA300C10 PO; +RISP1TAB45 PO; +TRIH2TAB3 PO
[2018-04-24 10:06] VITALS: BP 118/74
== END 2018-04-24 11:37 | disposition home or self-care (01) ==
LOC: ED 11:31
DX: F39 Unspecified mood [affective] disorder (principal); F15.10 Other stimulant abuse, uncomplicated; J45.909 Unspecified asthma, uncomplicated; Z86.19 Personal history of other infectious and parasitic diseases; F31.9 Bipolar disorder, unspecified; F25.9 Schizoaffective disorder, unspecified
CPT/HCPCS: 99284

== ENCOUNTER 2018-06-27 13:23 | Inpatient (IN) | payer MEDICAID ==
[~2018-06-27] VITALS: Ht 177.8 cm; Wt 84.9 kg
[2018-06-27] MEDS ORDERED: POLYETHYLENE GLYCOL 17 GM PACKET PO PRN (14:00)
[2018-06-27] MEDS ORDERED: DOCUSATE 100 MG CAPSULE PO PRN (14:00)
[2018-06-27] MEDS ORDERED: BISACODYL 10 MG SUPP PR PRN (14:00)
[2018-06-27 14:10] VITALS: BP 123/85
[2018-06-27] MEDS ORDERED: QUET200T4 PO (14:16)
[2018-06-27] MEDS ORDERED: BUSP5TAB2 PO (14:16)
[2018-06-27] MEDS ORDERED: PLEASE ENTER HEIGHT AND WEIGHT MC SCH (14:30)
[2018-06-27 14:54] LABS: BASOPHILS # (AUTO) 0.01 x10^3/uL (0-0.1); BASOPHILS % (AUTO) 0 % (0-1); EOSINOPHILS % (AUTO) 4 % (1-7); LYMPHOCYTES # (AUTO) 1.34 x10^3/uL (1-3.4); LYMPHOCYTES % (AUTO) 25 % (22-44); MD NO; MEAN CORPUSCULAR HEMOGLOBIN 29.8 pg (27.5-34.5); MEAN CORPUSCULAR VOLUME 87.4 fL (81-97); MEAN PLATELET VOLUME 7.9 fL (7.4-10.4); MONOCYTES # (AUTO) 0.54 x10^3/uL (0.2-0.8); MONOCYTES % (AUTO) 10 % (2-9); NEUTROPHILS # (AUTO) 3.23 x10^3/uL (1.8-6.8); NEUTROPHILS % (AUTO) 61 % (42-75); PLATELET COUNT 230 x10^3/uL (130-400); RED BLOOD COUNT 5.94 x10^6/uL (4.38-5.82); RED CELL DISTRIBUTION WIDTH 15.5 % (9.4-14.8)
[2018-06-27 14:56] VITALS: BP 123/85
[2018-06-27 15:06] LABS: CHOLESTEROL, TOTAL 115 mg/dL (140-239); TRIGLYCERIDES 73 mg/dL (50-200); VLDL CHOLESTEROL 15 mg/dL (0-25)
[2018-06-27 15:31] LABS: CHOL/HDL RATIO 1.5; FREE T4 (FREE THYROXINE) 1.17 ng/dL (0.76-1.46); HDL CHOL % 66 % (26-37); HDL CHOLESTEROL (DIRECT) 76 mg/dL (40-60); LDL CHOLESTEROL,CALCULATED 24 mg/dL (54-169); LDL/HDL RATIO 0.3 (0.5-3.0); THYROID STIMULATING HORMONE 0.406 mIU/L (0.358-3.740)
[2018-06-27 15:42] LABS: FOLATE LEVEL > 20.0 ng/mL (3.1-17.5)
[2018-06-27] MEDS: NICOTINE 14MG/24 HR PATCH.TD24 TD SCH (15:49)
[2018-06-27] MEDS ORDERED: ALBUTEROL SULFATE 2.5 MG/3 ML ONE (16:19)
[2018-06-27] MEDS ORDERED: ALBUTEROL SULFATE 2.5 MG/3 ML NPPB PRN (17:00)
[2018-06-27] MEDS: LACTULOSE 20 GM/30 ML UDC PO SCH ×2 (17:49→19:58)
[2018-06-27] MEDS: LORazepam 1MG TABLET PO PRN (17:50)
[2018-06-27 18:14] LABS: BILIRUBIN, DIRECT 0.3 mg/dL (0.1-0.2)
[2018-06-27 18:24] LABS: ALBUMIN 3.9 g/dL (3.4-5.0); BILIRUBIN,INDIRECT 0.6 mg/dL (0.0-2.0); BILIRUBIN,TOTAL 0.9 mg/dL (0.2-1.0); TOTAL PROTEIN 7.8 g/dL (6.4-8.2)
[2018-06-27 19:48] VITALS: BP 128/87
[2018-06-27] MEDS: QUETIAPINE 100MG TABLET PO SCH (19:59)
[2018-06-27] MEDS: BUSPIRONE 5 MG TABLET PO SCH (19:59)
[2018-06-27] MEDS: GABAPENTIN 300 MG CAPSULE PO SCH (19:59)
[2018-06-27] MEDS: ACAMPROSATE 333 MG TABLET.DR PO SCH (19:59)
[2018-06-28 07:17] VITALS: BP 111/73
[2018-06-28] MEDS: THIAMINE 100MG TABLET PO SCH (09:37)
[2018-06-28] MEDS: GABAPENTIN 300 MG CAPSULE PO SCH ×3 (09:38→20:23)
[2018-06-28] MEDS: ACAMPROSATE 333 MG TABLET.DR PO SCH ×3 (09:38→20:23)
[2018-06-28] MEDS: FOLIC ACID 1 MG TABLET PO SCH (09:38)
[2018-06-28] MEDS: QUETIAPINE 100MG TABLET PO SCH ×2 (09:38→20:24)
[2018-06-28] MEDS: LACTULOSE 20 GM/30 ML UDC PO SCH ×4 (09:39→20:40)
[2018-06-28] MEDS: BUSPIRONE 5 MG TABLET PO SCH ×3 (09:39→20:23)
[2018-06-28 10:14] LABS: ALANINE AMINOTRANSFERASE 61 U/L (12-78); ALBUMIN 3.3 g/dL (3.4-5.0); ANION GAP 8 mmol/L (5-15); CALCIUM 8.8 mg/dL (8.5-10.1); CHLORIDE 106 mmol/L (98-107); CREATININE 1.01 mg/dL (0.7-1.3)
[2018-06-28 10:17] LABS: ALKALINE PHOSPHATASE 95 U/L (45-117); BILIRUBIN,TOTAL 0.5 mg/dL (0.2-1.0); TOTAL PROTEIN 6.7 g/dL (6.4-8.2)
[2018-06-28 11:01] LABS: BASOPHILS # (AUTO) 0.02 x10^3/uL (0-0.1); BASOPHILS % (AUTO) 0 % (0-1); EOSINOPHILS # (AUTO) 0.18 x10^3/uL (0-0.4); EOSINOPHILS % (AUTO) 3 % (1-7); LYMPHOCYTES # (AUTO) 1.05 x10^3/uL (1-3.4); LYMPHOCYTES % (AUTO) 19 % (22-44); MD NO; MEAN CORPUSCULAR HEMOGLOBIN 29.3 pg (27.5-34.5); MEAN CORPUSCULAR HGB CONC 33.2 g/dL (33.2-36.2); MEAN CORPUSCULAR VOLUME 88.2 fL (81-97); MEAN PLATELET VOLUME 8.3 fL (7.4-10.4); MONOCYTES # (AUTO) 0.61 x10^3/uL (0.2-0.8); MONOCYTES % (AUTO) 11 % (2-9); NEUTROPHILS # (AUTO) 3.71 x10^3/uL (1.8-6.8); NEUTROPHILS % (AUTO) 67 % (42-75); PLATELET COUNT 220 x10^3/uL (130-400); RED BLOOD COUNT 5.44 x10^6/uL (4.38-5.82); RED CELL DISTRIBUTION WIDTH 15.8 % (9.4-14.8)
[2018-06-28] MEDS: NICOTINE 14MG/24 HR PATCH.TD24 TD SCH (14:19)
[2018-06-28 21:31] VITALS: BP 125/84
[2018-06-29 07:12] VITALS: BP 111/79
[2018-06-29] MEDS: LACTULOSE 20 GM/30 ML UDC PO SCH ×2 (09:00→09:17)
[2018-06-29] MEDS: QUETIAPINE 100MG TABLET PO SCH ×2 (09:16→20:30)
[2018-06-29] MEDS: BUSPIRONE 5 MG TABLET PO SCH ×3 (09:16→20:30)
[2018-06-29] MEDS: ACAMPROSATE 333 MG TABLET.DR PO SCH ×3 (09:16→20:31)
[2018-06-29] MEDS: GABAPENTIN 300 MG CAPSULE PO SCH ×3 (09:17→20:30)
[2018-06-29] MEDS: THIAMINE 100MG TABLET PO SCH (09:17)
[2018-06-29] MEDS: LORazepam 1MG TABLET PO PRN (09:17)
[2018-06-29] MEDS: FOLIC ACID 1 MG TABLET PO SCH (09:17)
[2018-06-29 13:04] LABS: MICROSCOPIC NOT IND
[2018-06-29 13:11] LABS: CULTURE INDICATED? NO
[2018-06-29] MEDS: NICOTINE 14MG/24 HR PATCH.TD24 TD SCH (14:22)
[2018-06-29 20:00] VITALS: BP 119/73
[2018-06-30 07:08] VITALS: BP 108/73
[2018-06-30] MEDS: QUETIAPINE 100MG TABLET PO SCH ×2 (08:15→20:14)
[2018-06-30] MEDS: ACAMPROSATE 333 MG TABLET.DR PO SCH ×3 (08:16→20:14)
[2018-06-30] MEDS: BUSPIRONE 5 MG TABLET PO SCH ×3 (08:16→20:14)
[2018-06-30] MEDS: FOLIC ACID 1 MG TABLET PO SCH (08:16)
[2018-06-30] MEDS: LACTULOSE 20 GM/30 ML UDC PO SCH ×2 (08:16→08:24)
[2018-06-30] MEDS: GABAPENTIN 300 MG CAPSULE PO SCH ×3 (08:17→20:14)
[2018-06-30] MEDS: THIAMINE 100MG TABLET PO SCH (08:18)
[2018-06-30] MEDS: LORazepam 1MG TABLET PO PRN ×2 (10:46→20:14)
[2018-06-30] MEDS: NICOTINE 14MG/24 HR PATCH.TD24 TD SCH (14:06)
[2018-06-30] MEDS ORDERED: CALCIUM CARBONATE 500 MG TAB.CHEW PO PRN (14:30)
[2018-06-30 19:38] VITALS: BP 112/71
[2018-06-30] MEDS: ACETAMINOPHEN 325 MG TABLET PO PRN (20:14)
[2018-07-01 07:15] VITALS: BP 122/80
[2018-07-01] MEDS: FOLIC ACID 1 MG TABLET PO SCH (09:01)
[2018-07-01] MEDS: LACTULOSE 20 GM/30 ML UDC PO SCH (09:01)
[2018-07-01] MEDS: QUETIAPINE 100MG TABLET PO SCH (09:01)
[2018-07-01] MEDS: BUSPIRONE 5 MG TABLET PO SCH ×3 (09:01→20:36)
[2018-07-01] MEDS: ACAMPROSATE 333 MG TABLET.DR PO SCH ×3 (09:01→20:36)
[2018-07-01] MEDS: THIAMINE 100MG TABLET PO SCH (09:02)
[2018-07-01] MEDS: GABAPENTIN 300 MG CAPSULE PO SCH ×3 (09:02→20:36)
[2018-07-01] MEDS: NICOTINE 14MG/24 HR PATCH.TD24 TD SCH (14:26)
[2018-07-01 19:24] VITALS: BP 126/84
[2018-07-01] MEDS: QUETIAPINE 200 MG TABLET PO SCH (20:38)
[2018-07-02 07:34] VITALS: BP 115/76
[2018-07-02] MEDS: LACTULOSE 20 GM/30 ML UDC PO SCH (08:38)
[2018-07-02] MEDS: GABAPENTIN 300 MG CAPSULE PO SCH ×3 (08:47→20:58)
[2018-07-02] MEDS: QUETIAPINE 100MG TABLET PO SCH (08:47)
[2018-07-02] MEDS: ACAMPROSATE 333 MG TABLET.DR PO SCH ×3 (08:47→20:58)
[2018-07-02] MEDS: FOLIC ACID 1 MG TABLET PO SCH (08:47)
[2018-07-02] MEDS: BUSPIRONE 5 MG TABLET PO SCH ×3 (08:47→20:58)
[2018-07-02] MEDS: LORazepam 1MG TABLET PO PRN (08:48)
[2018-07-02] MEDS: ACETAMINOPHEN 325 MG TABLET PO PRN (08:48)
[2018-07-02] MEDS: THIAMINE 100MG TABLET PO SCH (08:48)
[2018-07-02] MEDS: NICOTINE 14MG/24 HR PATCH.TD24 TD SCH (14:10)
[2018-07-02 19:39] VITALS: BP 104/68
[2018-07-02] MEDS: QUETIAPINE 200 MG TABLET PO SCH (20:58)
[2018-07-03 07:07] VITALS: BP 117/78
[2018-07-03] MEDS: QUETIAPINE 100MG TABLET PO SCH (07:28)
[2018-07-03] MEDS: ACAMPROSATE 333 MG TABLET.DR PO SCH ×3 (08:00→20:32)
[2018-07-03] MEDS: GABAPENTIN 300 MG CAPSULE PO SCH ×3 (08:00→20:32)
[2018-07-03] MEDS: LORazepam 1MG TABLET PO PRN (08:00)
[2018-07-03] MEDS: FOLIC ACID 1 MG TABLET PO SCH (08:00)
[2018-07-03] MEDS: ACETAMINOPHEN 325 MG TABLET PO PRN (08:00)
[2018-07-03] MEDS: BUSPIRONE 5 MG TABLET PO SCH ×3 (08:00→20:32)
[2018-07-03] MEDS: THIAMINE 100MG TABLET PO SCH (08:01)
[2018-07-03] MEDS: LACTULOSE 20 GM/30 ML UDC PO SCH (08:06)
[2018-07-03] MEDS: NICOTINE 14MG/24 HR PATCH.TD24 TD SCH (13:49)
[2018-07-03 19:38] VITALS: BP 110/72
[2018-07-03] MEDS: QUETIAPINE 200 MG TABLET PO SCH (20:32)
[2018-07-04 07:08] VITALS: BP 113/78
[2018-07-04] MEDS: LACTULOSE 20 GM/30 ML UDC PO SCH ×2 (09:00→09:23)
[2018-07-04] MEDS: THIAMINE 100MG TABLET PO SCH (09:23)
[2018-07-04] MEDS: QUETIAPINE 100MG TABLET PO SCH (09:23)
[2018-07-04] MEDS: ACAMPROSATE 333 MG TABLET.DR PO SCH ×3 (09:23→20:31)
[2018-07-04] MEDS: GABAPENTIN 300 MG CAPSULE PO SCH ×3 (09:23→20:32)
[2018-07-04] MEDS: BUSPIRONE 5 MG TABLET PO SCH ×3 (09:23→20:31)
[2018-07-04] MEDS: FOLIC ACID 1 MG TABLET PO SCH (09:23)
[2018-07-04] MEDS: LORazepam 1MG TABLET PO PRN (12:37)
[2018-07-04] MEDS: NICOTINE 14MG/24 HR PATCH.TD24 TD SCH (15:08)
[2018-07-04 19:26] VITALS: BP 103/75
[2018-07-04] MEDS: QUETIAPINE 200 MG TABLET PO SCH (20:32)
[2018-07-04] MEDS: DIVALPROEX 500 MG TABLET.DR PO SCH (20:32)
[2018-07-04] MEDS: ACETAMINOPHEN 325 MG TABLET PO PRN (20:32)
[2018-07-05 07:14] VITALS: BP 106/70
[2018-07-05] MEDS: QUETIAPINE 100MG TABLET PO SCH (07:28)
[2018-07-05] MEDS: LORazepam 1MG TABLET PO PRN (07:28)
[2018-07-05] MEDS: ACETAMINOPHEN 325 MG TABLET PO PRN (07:28)
[2018-07-05] MEDS: BUSPIRONE 5 MG TABLET PO SCH ×3 (08:30→20:24)
[2018-07-05] MEDS: THIAMINE 100MG TABLET PO SCH (08:30)
[2018-07-05] MEDS: DIVALPROEX 500 MG TABLET.DR PO SCH ×2 (08:30→20:24)
[2018-07-05] MEDS: FOLIC ACID 1 MG TABLET PO SCH (08:30)
[2018-07-05] MEDS: ACAMPROSATE 333 MG TABLET.DR PO SCH ×3 (08:31→20:24)
[2018-07-05] MEDS: GABAPENTIN 300 MG CAPSULE PO SCH ×3 (08:31→20:25)
[2018-07-05] MEDS: LACTULOSE 20 GM/30 ML UDC PO SCH (08:33)
[2018-07-05] MEDS: NICOTINE 14MG/24 HR PATCH.TD24 TD SCH (14:57)
[2018-07-05 19:25] VITALS: BP 105/72
[2018-07-05] MEDS: QUETIAPINE 200 MG TABLET PO SCH (20:25)
[2018-07-06 07:17] VITALS: BP 113/70
[2018-07-06] MEDS: QUETIAPINE 100MG TABLET PO SCH (07:19)
[2018-07-06] MEDS: DIVALPROEX 500 MG TABLET.DR PO SCH (08:40)
[2018-07-06] MEDS: BUSPIRONE 5 MG TABLET PO SCH ×3 (08:40→20:28)
[2018-07-06] MEDS: LORazepam 1MG TABLET PO PRN ×2 (08:40→20:29)
[2018-07-06] MEDS: FOLIC ACID 1 MG TABLET PO SCH (08:40)
[2018-07-06] MEDS: ACAMPROSATE 333 MG TABLET.DR PO SCH ×3 (08:40→20:28)
[2018-07-06] MEDS: ACETAMINOPHEN 325 MG TABLET PO PRN (08:40)
[2018-07-06] MEDS: GABAPENTIN 300 MG CAPSULE PO SCH ×3 (08:40→20:29)
[2018-07-06] MEDS: LACTULOSE 20 GM/30 ML UDC PO SCH (08:43)
[2018-07-06] MEDS: THIAMINE 100MG TABLET PO SCH (08:44)
[2018-07-06] MEDS: NICOTINE 14MG/24 HR PATCH.TD24 TD SCH (15:11)
[2018-07-06 19:28] VITALS: BP 125/86
[2018-07-06] MEDS: QUETIAPINE 200 MG TABLET PO SCH (20:29)
[2018-07-07 07:30] VITALS: BP 129/81
[2018-07-07] MEDS: DIVALPROEX 500 MG TABLET.DR PO SCH ×2 (08:13→12:10)
[2018-07-07] MEDS: QUETIAPINE 100MG TABLET PO SCH (08:14)
[2018-07-07] MEDS: BUSPIRONE 5 MG TABLET PO SCH ×3 (08:14→20:33)
[2018-07-07] MEDS: ACAMPROSATE 333 MG TABLET.DR PO SCH ×3 (08:14→20:33)
[2018-07-07] MEDS: LORazepam 1MG TABLET PO PRN (08:15)
[2018-07-07] MEDS: THIAMINE 100MG TABLET PO SCH (08:15)
[2018-07-07] MEDS: FOLIC ACID 1 MG TABLET PO SCH (08:15)
[2018-07-07] MEDS: GABAPENTIN 300 MG CAPSULE PO SCH ×3 (08:15→20:33)
[2018-07-07] MEDS: LACTULOSE 20 GM/30 ML UDC PO SCH (08:15)
[2018-07-07] MEDS: NICOTINE 14MG/24 HR PATCH.TD24 TD SCH (14:39)
[2018-07-07 19:49] VITALS: BP 118/74
[2018-07-07] MEDS: QUETIAPINE 200 MG TABLET PO SCH (20:32)
[2018-07-08] MEDS: LORazepam 1MG TABLET PO PRN ×3 (01:11→20:24)
[2018-07-08 07:05] VITALS: BP 112/77
[2018-07-08] MEDS: QUETIAPINE 100MG TABLET PO SCH (08:15)
[2018-07-08] MEDS: DIVALPROEX 500 MG TABLET.DR PO SCH ×2 (08:15→13:02)
[2018-07-08] MEDS: BUSPIRONE 5 MG TABLET PO SCH ×3 (08:16→20:23)
[2018-07-08] MEDS: GABAPENTIN 300 MG CAPSULE PO SCH ×3 (08:16→20:23)
[2018-07-08] MEDS: LACTULOSE 20 GM/30 ML UDC PO SCH (08:16)
[2018-07-08] MEDS: FOLIC ACID 1 MG TABLET PO SCH (08:16)
[2018-07-08] MEDS: ACAMPROSATE 333 MG TABLET.DR PO SCH ×3 (08:16→20:24)
[2018-07-08] MEDS: THIAMINE 100MG TABLET PO SCH (08:16)
[2018-07-08] MEDS: ACETAMINOPHEN 325 MG TABLET PO PRN (08:52)
[2018-07-08] MEDS: NICOTINE 14MG/24 HR PATCH.TD24 TD SCH (14:25)
[2018-07-08 19:41] VITALS: BP 134/79
[2018-07-08] MEDS: QUETIAPINE 200 MG TABLET PO SCH (20:23)
[2018-07-09 07:34] VITALS: BP 137/85
[2018-07-09] MEDS: ACAMPROSATE 333 MG TABLET.DR PO SCH ×3 (08:14→20:16)
[2018-07-09] MEDS: FOLIC ACID 1 MG TABLET PO SCH (08:14)
[2018-07-09] MEDS: BUSPIRONE 5 MG TABLET PO SCH ×3 (08:14→20:19)
[2018-07-09] MEDS: QUETIAPINE 100MG TABLET PO SCH (08:14)
[2018-07-09] MEDS: GABAPENTIN 300 MG CAPSULE PO SCH ×3 (08:14→20:17)
[2018-07-09] MEDS: DIVALPROEX 500 MG TABLET.DR PO SCH ×2 (08:14→11:16)
[2018-07-09] MEDS: THIAMINE 100MG TABLET PO SCH (08:14)
[2018-07-09] MEDS: LACTULOSE 20 GM/30 ML UDC PO SCH (08:15)
[2018-07-09] MEDS: LORazepam 1MG TABLET PO PRN (11:16)
[2018-07-09] MEDS: NICOTINE 14MG/24 HR PATCH.TD24 TD SCH (14:03)
[2018-07-09] MEDS: ALBUTEROL SULFATE 2.5 MG/3 ML NPPB PRN (15:55)
[2018-07-09 19:37] VITALS: BP 134/85
[2018-07-09] MEDS: QUETIAPINE 200 MG TABLET PO SCH (20:17)
[2018-07-10 07:22] VITALS: BP 111/73
[2018-07-10] MEDS: BUSPIRONE 5 MG TABLET PO SCH ×3 (08:34→20:26)
[2018-07-10] MEDS: GABAPENTIN 300 MG CAPSULE PO SCH ×3 (08:34→20:27)
[2018-07-10] MEDS: FOLIC ACID 1 MG TABLET PO SCH (08:34)
[2018-07-10] MEDS: THIAMINE 100MG TABLET PO SCH (08:34)
[2018-07-10] MEDS: DIVALPROEX 500 MG TABLET.DR PO SCH ×2 (08:34→11:36)
[2018-07-10] MEDS: ACAMPROSATE 333 MG TABLET.DR PO SCH ×3 (08:34→20:27)
[2018-07-10] MEDS: LACTULOSE 20 GM/30 ML UDC PO SCH (08:35)
[2018-07-10] MEDS: QUETIAPINE 100MG TABLET PO SCH (08:35)
[2018-07-10] MEDS: ACETAMINOPHEN 325 MG TABLET PO PRN ×2 (13:09→20:35)
[2018-07-10] MEDS: NICOTINE 14MG/24 HR PATCH.TD24 TD SCH (13:13)
[2018-07-10] MEDS: ALBUTEROL SULFATE 2.5 MG/3 ML NPPB PRN (18:42)
[2018-07-10 19:48] VITALS: BP 103/74
[2018-07-10] MEDS: QUETIAPINE 200 MG TABLET PO SCH (20:26)
[2018-07-10] MEDS: LORazepam 1MG TABLET PO PRN (20:26)
[2018-07-10] MEDS: MELATONIN 5 MG TABLET PO SCH (20:27)
[2018-07-11 07:28] VITALS: BP 99/70
[2018-07-11] MEDS: LACTULOSE 20 GM/30 ML UDC PO SCH ×2 (09:00→09:35)
[2018-07-11] MEDS: QUETIAPINE 100MG TABLET PO SCH (09:36)
[2018-07-11] MEDS: FOLIC ACID 1 MG TABLET PO SCH (09:36)
[2018-07-11] MEDS: BUSPIRONE 5 MG TABLET PO SCH ×3 (09:36→20:15)
[2018-07-11] MEDS: ACAMPROSATE 333 MG TABLET.DR PO SCH ×3 (09:36→20:15)
[2018-07-11] MEDS: GABAPENTIN 300 MG CAPSULE PO SCH ×3 (09:36→20:15)
[2018-07-11] MEDS: DIVALPROEX 500 MG TABLET.DR PO SCH ×2 (09:36→12:03)
[2018-07-11] MEDS: THIAMINE 100MG TABLET PO SCH (09:36)
[2018-07-11] MEDS: ALBUTEROL SULFATE 2.5 MG/3 ML NPPB PRN (10:05)
[2018-07-11] MEDS: NICOTINE 14MG/24 HR PATCH.TD24 TD SCH (14:41)
[2018-07-11] MEDS: ALBUTEROL SULFATE 2.5 MG/3 ML NPPB SCH ×2 (15:15→21:59)
[2018-07-11 19:35] VITALS: BP 97/65
[2018-07-11] MEDS: ACETAMINOPHEN 325 MG TABLET PO PRN (20:15)
[2018-07-11] MEDS: MELATONIN 5 MG TABLET PO SCH (20:15)
[2018-07-11] MEDS: QUETIAPINE 200 MG TABLET PO SCH (20:15)
[2018-07-11] MEDS: LORazepam 1MG TABLET PO PRN (20:15)
[2018-07-12] MEDS: ALBUTEROL SULFATE 2.5 MG/3 ML NPPB SCH ×2 (02:55→07:30)
[2018-07-12 07:24] VITALS: BP 104/70
[2018-07-12] MEDS: ACETAMINOPHEN 325 MG TABLET PO PRN (08:57)
[2018-07-12] MEDS: QUETIAPINE 100MG TABLET PO SCH (08:57)
[2018-07-12] MEDS: ACAMPROSATE 333 MG TABLET.DR PO SCH (08:58)
[2018-07-12] MEDS: FOLIC ACID 1 MG TABLET PO SCH (08:58)
[2018-07-12] MEDS: BUSPIRONE 5 MG TABLET PO SCH (08:58)
[2018-07-12] MEDS: LORazepam 1MG TABLET PO PRN (08:58)
[2018-07-12] MEDS: DIVALPROEX 500 MG TABLET.DR PO SCH (08:58)
[2018-07-12] MEDS: THIAMINE 100MG TABLET PO SCH (08:58)
[2018-07-12] MEDS: GABAPENTIN 300 MG CAPSULE PO SCH (08:58)
[2018-07-12] MEDS: LACTULOSE 20 GM/30 ML UDC PO SCH (09:00)
== END 2018-07-12 11:35 | disposition home or self-care (01) | DRG 57 ==
LOC: 3E 14:04
PROVIDERS: ADMIT Psychiatry & Neurology Psychosomatic Medicine; ATTEND Psychiatry & Neurology Psychosomatic Medicine
DX: G31.2 Degeneration of nervous system due to alcohol (principal); F15.20 Other stimulant dependence, uncomplicated; D68.69 Other thrombophilia; E51.9 Thiamine deficiency, unspecified; E72.20 Disorder of urea cycle metabolism, unspecified; R45.851 Suicidal ideations; F25.0 Schizoaffective disorder, bipolar type; F10.20 Alcohol dependence, uncomplicated; F41.1 Generalized anxiety disorder; F17.210 Nicotine dependence, cigarettes, uncomplicated; B18.2 Chronic viral hepatitis C; F90.9 Attention-deficit hyperactivity disorder, unspecified type; G89.29 Other chronic pain; J45.909 Unspecified asthma, uncomplicated; K21.9 Gastro-esophageal reflux disease without esophagitis; F11.10 Opioid abuse, uncomplicated; Z88.0 Allergy status to penicillin; Z88.8 Allergy status to other drugs, medicaments and biological substances; Z79.899 Other long term (current) drug therapy; Z59.0 Homelessness; Z81.8 Family history of other mental and behavioral disorders; Z83.6 Family history of other diseases of the respiratory system; Z82.49 Family history of ischemic heart disease and other diseases of the circulatory system
CPT/HCPCS: 36415; J7613; 70551; 80053; 80061; 80076; 81003; 82140; 82607; 82746; 84439; 84443; 85025; 86592; 93005; 94640; 92522-GN